=== PATIENT | male | born 1995 | race Two or more races ===

== ENCOUNTER 2021-11-09 16:39 | Emergency (ER) | payer SELFPAY ==
[~2021-11-09] VITALS: Ht 172.7 cm; Wt 68.0 kg
[~2021-11-09 16:39] MED LIST: LURA40TA; OLAN2.5T3; QUET25TA
--- NOTE | 2021-11-09 16:53 | NUR ---
PT [id number] ACCOMPANIED BY PD, HERE FOR MEDICAL CLEARANCE FOR A L ANKLE AREA SWELLING W NOTED WOUND S/P CUTTING HIS ANKLE BRACELET. PT IS SELLECTIVE IN ANSWERING QUESTIONS, STABLE VITALS. AWAITING MD FALK.
--- NOTE | 2021-11-09 17:05 | NUR ---
PER PD, PT WILL BE RELEASED AND BE PLACED ON 5150 HOLD. HOMA OLIVEIRA AWARE.
--- NOTE | 2021-11-09 17:09 | NUR ---
BHUPINDER OLIVEIRA AT BEDSIDE FOR EVAL.
--- NOTE | 2021-11-09 17:22 | NUR ---
ACCOUNTING ADMINISTRATIVE ASSISTANT AT BEDSIDE FOR BLOOD DRAW.
[2021-11-09 17:30] LABS: BASOPHILS # (AUTO) 0.1 K/uL (0.0-0.2); BASOPHILS % (AUTO) 0.6 % (0.0-2.0); EOSINOPHILS % (AUTO) 1.6 % (0.0-6.0); HEMATOCRIT 39 % (39-51); LYMPHOCYTES # (AUTO) 2.3 K/uL (0.8-4.8); LYMPHOCYTES % (AUTO) 25.1 % (20.0-44.0); MEAN CORPUSCULAR HGB CONC 33 g/dl (31.0-36.0); MEAN CORPUSCULAR VOLUME 93 fL (80-96); MONOCYTES # (AUTO) 0.9 K/uL (0.1-1.30); MONOCYTES % (AUTO) 9.9 % (2.0-12.0); NEUTROPHILS # (AUTO) 5.6 K/uL (1.8-8.9); NEUTROPHILS % (AUTO) 62.8 % (43.0-81.0); PLATELET COUNT (AUTO) 317 K/uL (150-450); RED BLOOD CELL COUNT(AUTO) 4.21 MIL/uL (4.5-6.0)
[2021-11-09 17:58] LABS: CALCIUM, SERUM 8.3 mg/dL (8.5-10.1); CARBON DIOXIDE 25 mmol/L (21-32); CHLORIDE 106 mmol/L (98-107); CREATININE 0.6 mg/dL (0.6-1.3); GLUCOSE 100 mg/dL (74-106); POTASSIUM 3.9 mmol/L (3.5-5.1); SODIUM SERUM 142 mmol/L (136-145); UREA NITROGEN, BLOOD 12 mg/dL (7-18)
[2021-11-09 18:04] LABS: ALANINE AMINOTRANSFERASE 117 U/L (12-78); ALBUMIN 3.2 g/dL (3.4-5.0); ALCOHOL, BLOOD < 3 mg/dL (0-0); ALKALINE PHOSPHATASE 103 U/L (46-116); ASPARTATE AMINOTRANSFERASE 128 U/L (15-37); BILIRUBIN,DIRECT 0.1 mg/dL (0.0-0.2); BILIRUBIN,TOTAL 0.3 mg/dL (0.2-1.0); TOTAL PROTEIN, SERUM 6.9 g/dL (6.4-8.2)
[2021-11-09 18:05] LABS: ACETAMINOPHEN < 10 ug/ml (10-30)
[2021-11-09] MEDS ORDERED: risperiDONE 0.25 MG TABLET PO ONE (19:00)
[2021-11-09] MEDS ORDERED: risperiDONE 1 MG TABLET ONE (19:38)
--- NOTE | 2021-11-09 20:21 | NUR ---
URINE COLLECTED SENT TO LAB
[2021-11-09 21:01] LABS: BILIRUBIN,URINE NEGATIVE (NEGATIVE); COLOR,URINE YELLOW (YELLOW); LEUKOCYTE ESTERASE ,URINE NEGATIVE (NEGATIVE); NITRITE, URINE NEGATIVE (NEGATIVE); PROTEIN,URINE NEGATIVE (NEGATIVE); UGLUCOSE NEGATIVE (NEGATIVE); UROBILINOGEN,URINE 0.2 EU/dL (0.2)
--- NOTE | 2021-11-10 00:11 | NUR ---
AURELIO, CARPET SEWER PAGED FOR EVAL
--- NOTE | 2021-11-10 02:25 | NUR ---
AURELIO DEXTER AT PT'S BEDSIDE FOR EVAL
[2021-11-10] MEDS ORDERED: OLANZAPINE 10 MG VIAL IM ONE ×2 (02:29→02:30)
[2021-11-10] MEDS ORDERED: OLANZAPINE 5 MG TABLET ONE (02:37)
[2021-11-10] MEDS ORDERED: OLANZAPINE 5 MG TABLET PO ONE (03:00)
--- NOTE | 2021-11-10 03:01 | NUR ---
ZYPREXA 5MG IM REFUSED BY PT BUT WILL TAKE ORALLY. MADE AWARE. ORDER IS CHANGED TO PO ROUTE
--- NOTE | 2021-11-10 03:43 | NUR ---
PT SLEEPING. TOLERATING R/A WELL WITH NO RESP DISTRESS. SAFETY MEASURES IN PLACE. 1:1 SITTER AT PT'S BEDSIDE.
--- NOTE | 2021-11-10 07:20 | NUR ---
RECEIVED PT FROM MELISSA PRATER PT AWAKE FALLOW COMMAND RESTLETESRl WATRAGHU for pschy EVALUATION
--- NOTE | 2021-11-10 08:10 | NUR ---
CALLED KORTNEY OLIVEROS LEFT MSG.
--- NOTE | 2021-11-10 10:57 | NUR ---
JOE JOSEPH, - Has temporary conservatorship
--- NOTE | 2021-11-10 11:43 | NUR ---
Clinical Social Work Note Spoke with temporary public guardian Griselda Audelia ). Discussed this patient and advised her is medically and psychiatrically clear to leave our ED. She said he is on parole and has placement. He tried to remove his ankle bracelet laast night at his placement per Griselda Win ([phone]). Plan: Spoke with agent Fam ([phone]) and advised her patient is clear to leave ED on all levels. She said they will pick him up. Report given to MD Dr Laguna. Pt will be released inot compensation agent's custody. He was also evaluated by Ismael Whelan LCSW last night and cleared psychiatrically. Awaiting promotional marketing agent Fam who will pick pt up.
[2021-11-10 17:01] VITALS: BP 124/57
== END 2021-11-10 17:02 ==
LOC: ER 17:43
DX: F39 Unspecified mood [affective] disorder (principal); R74.01 Elevation of levels of liver transaminase levels; Z20.822 Contact with and (suspected) exposure to COVID-19; S90.512A Abrasion, left ankle, initial encounter; R60.0 Localized edema; L97.329 Non-pressure chronic ulcer of left ankle with unspecified severity; W45.8XXA Other foreign body or object entering through skin, initial encounter; Y92.89 Other specified places as the place of occurrence of the external cause; Z65.3 Problems related to other legal circumstances
CPT/HCPCS: 99284; 73610; 85025; 80048; 80076; 81003; 36415; 87426; 80143; 80320; 80307; C9803; G0480; J3490